=== PATIENT | male | born 2000 | race Hispanic/Latino ===

== ENCOUNTER 2022-01-08 16:21 | Emergency (ER) | payer OTHER, SELFPAY ==
--- OUTSIDE RECORDS SUMMARY | 2022-01-08 16:24 | XMS REPORT | Continuity of Care Document ---
:2000 Author Organization [facility] t Address [address] [place] [address] Care Team Providers Name Role Phone MIGNON Attending Clinician Unavailable Payers Payer Name Policy Type Policy Number Effective Date Expiration Date S ketty [facility] [id number] 2020 00:00:00 Problems This patient has no known problems. Allergies, Adverse Reactions, Alerts Allergy Allergy Status Severity Reaction(s) Onset Inactive Treating Comm ents Source Name Type Date Date Clinician NO KNOWN Drug Active [facility] ALLERGIE Class [facility] Medications This patient has no known medications. Procedures This patient has no known procedures. Encounters Start End Encounter Admission Attending Care Care Encounter Source Date/Time Date/Time Type Type Clinicians Facility Department ID 2020-11-30 2020-11-30 Emergency X CROW [facility] ERT [id number] [facility] 18:14:00 18:14:00 JUDY [facility] 2020-10-29 2020-10-29 Emergency X [facility] ERT [id number] [facility] 08:48:00 08:48:00 [facility] 2020-07-08 2020-07-08 Emergency X [facility] ERT [id number] [facility] 09:57:00 09:57:00 [facility] 2020-01-13 2020-01-13 Emergency X [facility] ERT [id number] [facility] 20:09:44 20:09:44 [facility] Results This patient has no known results.
[2022-01-08] MEDS ORDERED: NA CHLORIDE 0.9% 1,000 ML ONE (19:19)
[2022-01-08 19:33] LABS: Urine Blood Negative (Negative); Urine Glucose Negative (Negative); Urine Protein Negative (Negative)
[2022-01-08 19:54] LABS: Absolute Lymphocytes (CBC) 2.1 K/uL (0.7-4.9); Hematocrit 48.3 % (39.6-49.0); Lymphocytes % 24.4 % (15.3-44.8); MCV 83.5 fL (80-100); MPV 8.8 fL (7.6-11.3); RBC Red Blood Cell Count 5.78 M/uL (4.33-5.43)
[2022-01-08 20:05] LABS: Albumin 4.4 g/dL (3.4-5.0); Bilirubin Total 0.4 mg/dL (0.2-1.0); Potassium 3.6 mmol/L (3.5-5.1); Protein, Total 8.3 g/dL (6.4-8.2)
--- NOTE | 2022-01-08 20:26 | RAD REPORT ---
EXAM DESCRIPTION: CT - Abdomen Pelvis W Contrast - 01/08/2022 8:11 pm CLINICAL HISTORY: low back pain and suprapubic pain COMPARISON: CT ABD PELVIS W CONTRAST dated 01/08/2010 TECHNIQUE: Biphasic, helical CT imaging of the abdomen and pelvis was performed following 100 ml non -ionic IV contrast. No oral contrast administered. All CT scans are performed using dose optimization technique as appropriate and may include automated exposure control or mA/KV adjustment according to patient size. FINDINGS: No suspicious findings in the lung bases. The liver, spleen, and pancreas show no suspicious findings. Gallbladder and biliary tree are also wi thout suspicious finding. Renal function is symmetric with no pyelonephritis or acute renal parenchymal process. Fullness of ea ch renal pelvis is present, right greater than left, with no ureteral or bladder calculi seen. Enlarg ement of the renal pelves is new from 2010 CT study. No pyelonephritis or acute parenchymal process. Urinary bladder is mostly contracted. No adrenal abnormalities. No dilated bowel loops or bowel wall thickening. Appendix is normal. No active GI process seen. A few small mesenteric lymph nodes are present. No free air, free fluid or inflammatory stranding. No her tarun, mass or bulky lymphadenopathy. No suspicious bony findings. IMPRESSION: Contrast enhanced CT abdomen and pelvis showing no acute or emergent finding. Enlargement of each renal pelvis compared to 2010 is not associated with any obstructing calculus or delayed renal function. This is probably not clinically significant.
--- NOTE | 2022-01-08 21:03 | ER ---
Nurse's Notes [facility] Name: Yaya Boyd Age: 21 yrs Sex: Male : 2000 Arrival Date: 01/08/2022 Time: 16:29 Bed 20 Private MD: Diagnosis: Low back pain;Abdominal pain, unspecified Presentation: 01/08 16:38 Chief complaint: Low back pain that radiates to bilat flank and lower abdomen x 1 hb month. Also c/o intermittent burning with urination. Coronavirus screen: At this time, the client does not indicate any symptoms associated with coronavirus-19. Ebola Screen: No symptoms or risks identified at this time. Initial Sepsis Screen: Does the patient meet any 2 criteria? No. Patient's initial sepsis screen is negative. Does the patient have a suspected source of infection? No. Patient's initial sepsis screen is negative. Risk Assessment: Do you want to hurt yourself or someone else? Patient reports no desire to harm self or others. Onset of symptoms was December 2021. 16:38 Method Of Arrival: Ambulatory hb 16:38 Acuity: FATMATA 3 hb Triage Assessment: 16:40 General: Appears in no apparent distress. Behavior is calm, cooperative. Pain: Pain hb currently is 1 out of 10 on a pain scale. at worst was 10 out of 10 on a pain scale. Neuro: Level of Consciousness is awake, alert, obeys commands, Oriented to person, place, time, situation. Cardiovascular: Patient's skin is warm and dry. Respiratory: Respiratory effort is even, unlabored, Respiratory pattern is regular, symmetrical. Historical: - Allergies: 16:41 No Known Allergies; hb - Home Meds: 16:41 None [Active]; hb - PMHx: 16:41 None; hb - PSHx: 16:41 None; hb Screenin:44 Abuse screen: Denies threats or abuse. Nutritional screening: No deficits noted. ll3 Tuberculosis screening: No symptoms or risk factors identified. Fall Risk No fall in past 12 months (0 pts). No secondary diagnosis (0 pts). IV access (20 points). Ambulatory Aid- None/Bed Rest/Nurse Assist (0 pts). Gait- Normal/Bed Rest/Wheelchair (0 pts) Mental Status- Oriented to own ability (0 pts). Total Rubalcava Fall Scale indicates No Risk (0-24 pts). Assessment: 19:37 General: Appears comfortable, Behavior is calm, cooperative. Pain: Denies pain. Neuro: ll3 Level of Consciousness is awake, alert, obeys commands, Oriented to person, place, time, situation. GI: Bowel sounds present X 4 quads. Abd is soft and non tender X 4 quads. Patient currently denies abdominal pain. Derm: Skin is pink, warm \T\ dry. Musculoskeletal: Reports Intermittent back pain. 21:45 Reassessment: No changes from previously documented assessment. Patient and/or family ll3 updated on plan of care and expected duration. Pain level reassessed. Patient is alert, oriented x 3, equal unlabored respirations, skin warm/dry/pink. Vital Signs: 16:38 BP 144 / 92; Pulse 76; Resp 16; Temp 97.8; Pulse Ox 100% on R/A; Weight 92.99 kg; hb Height 5 ft. 7 in. (170.18 cm); Pain 1/10; 20:02 BP 127 / 89; Pulse 76; Resp 16; Pulse Ox 100% on R/A; ll3 21:45 BP 125 / 88; Pulse 72; Resp 16; Pulse Ox 100% ; ll3 16:38 Body Mass Index 32.11 (92.99 kg, 170.18 cm) hb ED Course: 16:29 Patient arrived in ED. am2 16:41 Triage completed. hb 18:19 Arm band placed on. hb 18:22 Diego Downs NP is PHCP. pm1 18:22 Christopher Hirsch MD is Attending Physician. pm1 19:37 Initial lab(s) drawn, by la, sent to lab. Urine collected: clean catch specimen, clear. ll3 Inserted saline lock: 22 gauge in right antecubital area, using aseptic technique. Blood collected. 20:02 Shahla Ann, STACEY is Primary Nurse. ll3 20:13 CT Abd/Pelvis - IV Contrast Only In Process Unspecified. EDMS 21:45 Patient has correct armband on for positive identification. Bed in low position. Call ll3 light in reach. Side rails up X 1. 21:45 No provider procedures requiring assistance completed. IV discontinued, intact, ll3 bleeding controlled, No redness/swelling at site. Pressure dressing applied. Administered Medications: 19:26 Drug: NS 0.9% 1000 ml Route: IV; Rate: 1000 ml; Site: right antecubital; ll3 21:46 Follow up: Response: No adverse reaction; IV Status: Completed infusion; IV Intake: ll3 1000ml Medication: 21:45 VIS not applicable for this client. ll3 Intake: 21:46 IV: 1000ml; Total: 1000ml. ll3 Outcome: 21:02 Discharge ordered by MD. pm1 21:46 Discharged to home ambulatory, with significant other. ll3 21:46 Condition: stable 21:46 Discharge instructions given to patient, significant other, Instructed on discharge instructions, follow up and referral plans. medication usage, Demonstrated understanding of instructions, follow-up care, medications, Prescriptions given X 3. 21:47 Patient left the ED. ll3 Signatures: Dispatcher [employer] EDMS Diego Downs, ISAAC REPRESENTATIVE pm1 Jennyfer Chen RN RN hb Moreno, Amanda am2 Shahla Ann RN RN 3
--- NOTE | 2022-01-08 21:03 | EDPHYS ---
Physician Documentation [facility] Name: Yaya Boyd Age: 21 yrs Sex: Male : 2000 Arrival Date: 01/08/2022 Time: 16:29 Bed 20 Private MD: ED Physician Christopher Hirsch HPI: 01/08 18:30 This 21 yrs old Male presents to ER via Ambulatory with complaints of Low Back pm1 Pain, Abdominal Pain - low. 18:30 The patient presents with pain that is acute. The symptoms are located in the low back. pm1 Location: Suprapubic area and groin. The problem was sustained from unknown cause. Onset: The symptoms/episode began/occurred 1 month(s) ago, Usually occurs at in the morning, but not everyday. Patient reports onset of pain this morning lasting about 30 minutes and resolved patient currently not in any kind of pain. Modifying factors: The patient symptoms are alleviated by nothing, the patient symptoms are aggravated by nothing. Associated signs and symptoms: Pertinent negatives: chest pain, dysuria, fever, nausea, vomiting. Severity of symptoms: in the emergency department the symptoms have resolved. The patient has experienced similar episodes in the past, several times, and the symptoms today are exactly the same, Has not been evaluated by healthcare provider 4 days presentation symptoms since onset. The patient has not recently seen a physician. Historical: - Allergies: 16:41 No Known Allergies; hb - Home Meds: 16:41 None [Active]; hb - PMHx: 16:41 None; hb - PSHx: 16:41 None; hb ROS: 18:30 Constitutional: Negative for fever, chills, and weight loss, Cardiovascular: Negative pm1 for chest pain, palpitations, and edema, Respiratory: Negative for shortness of breath, cough, wheezing, and pleuritic chest pain. 18:30 : Negative for injury, bleeding, discharge, and swelling, MS/Extremity: Negative for injury and deformity, Skin: Negative for injury, rash, and discoloration, Neuro: Negative for headache, weakness, numbness, tingling, and seizure. 18:30 Abdomen/GI: Positive for abdominal pain, of the suprapubic area. 18:30 Back: Positive for of the low back area. 18:30 All other systems are negative. Exam: 18:30 Constitutional: This is a well developed, well nourished patient who is awake, alert, pm1 and in no acute distress. Head/Face: Normocephalic, atraumatic. 18:30 Back: No spinal tenderness. No costovertebral tenderness. Full range of motion. Skin: Warm, dry with normal turgor. Normal color with no rashes, no lesions, and no evidence of cellulitis. MS/ Extremity: Pulses equal, no cyanosis. Neurovascular intact. Full, normal range of motion. 18:30 Eyes: Exam is negative for acute changes, Periorbital structures: no acute changes, Conjunctiva: no acute changes, no injection. 18:30 ENT: Exam is negative for acute changes, Mouth: Lips: normal, moist, Oral mucosa: normal, pink and intact, moist. 18:30 Cardiovascular: Exam negative for acute changes, Rate: normal, Rhythm: regular, Pulses: no pulse deficits are appreciated, Heart sounds: normal, normal S1and S2. 18:30 Respiratory: Exam negative for acute changes, respiratory distress, shortness of breath, Breath sounds: are clear throughout. 18:30 Abdomen/GI: Inspection: abdomen appears normal, Palpation: abdomen is soft and non-tender, in all quadrants. 18:30 Neuro: Exam negative for acute changes, Orientation: is normal, Mentation: is normal, Motor: is normal, moves all fours. Vital Signs: 16:38 BP 144 / 92; Pulse 76; Resp 16; Temp 97.8; Pulse Ox 100% on R/A; Weight 92.99 kg; hb Height 5 ft. 7 in. (170.18 cm); Pain 1/10; 20:02 BP 127 / 89; Pulse 76; Resp 16; Pulse Ox 100% on R/A; ll3 21:45 BP 125 / 88; Pulse 72; Resp 16; Pulse Ox 100% ; ll3 16:38 Body Mass Index 32.11 (92.99 kg, 170.18 cm) hb MDM: 18:22 Patient medically screened. [facility] 21:02 Data reviewed: vital signs. Data interpreted: Pulse oximetry: on room air is 100 %. pm1 Interpretation: normal. Counseling: I had a detailed discussion with the patient and/or guardian regarding: the historical points, exam findings, and any diagnostic results supporting the discharge/admit diagnosis, lab results, radiology results, the need for outpatient follow up, a family practitioner, to return to the emergency department if symptoms worsen or persist or if there are any questions or concerns that arise at home. 01/08 18:30 Order name: CBC with Diff; Complete Time: 20:13 pm1 01/08 18:30 Order name: CMP; Complete Time: 20:13 pm1 01/08 18:30 Order name: Lipase; Complete Time: 20:13 pm1 01/08 18:30 Order name: CT Abd/Pelvis - IV Contrast Only; Complete Time: 20:46 pm1 01/08 19:33 Order name: Urine Dipstick-Ancillary; Complete Time: 19:40 EDMS 01/08 18:30 Order name: IV Saline Lock; Complete Time: 19:26 pm1 01/08 18:30 Order name: Labs collected and sent; Complete Time: 19:26 pm1 01/08 18:30 Order name: Urine Dipstick-Ancillary (obtain specimen); Complete Time: 19:37 pm1 Administered Medications: : Drug: NS 0.9% 1000 ml Route: IV; Rate: 1000 ml; Site: right antecubital; ll3 21:46 Follow up: Response: No adverse reaction; IV Status: Completed infusion; IV Intake: ll3 1000ml Disposition Summary: 01/08/22 21:02 Discharge Ordered Location: Home pm1 Problem: new pm1 Symptoms: have improved pm1 Condition: Stable pm1 Diagnosis - Low back pain pm1 - Abdominal pain, unspecified pm1 Followup: pm1 - With: Emergency Department - When: As needed - Reason: Worsening of condition Followup: pm1 - With: Private Physician - When: 2 - 3 days - Reason: Recheck today's complaints, Continuance of care, Re-evaluation by your physician Discharge Instructions: - Discharge Summary Sheet pm1 - Abdominal Pain, Adult pm1 - Acute Back Pain, Adult pm1 Forms: - Medication Reconciliation Form pm1 - Thank You Letter pm1 - Antibiotic Education pm1 - Prescription Opioid Use pm1 Prescriptions: - Cyclobenzaprine 10 mg Oral Tablet - take 1 tablet by ORAL route every 8 hours As needed; 30 tablet; Refills: 0, pm1 Product Selection Permitted - Diclofenac Sodium 75 mg Oral tablet,delayed release (DR/EC) - take 1 tablet by ORAL route 2 times per day As needed; 30 tablet; Refills: 0, pm1 Product Selection Permitted Signatures: Dispatcher [employer] Christopher Resendez MD MD cha Marinas, Patrick, VP [employer] pm1 Jennyfer Chen, RN RN Shahla Ann RN RN ll3
[2022-01-08 21:53] VITALS: TEMP 97.8; O2SAT 100
[2022-01-08 21:58] VITALS: BP 125/88
== END 2022-01-08 21:47 | disposition home or self-care (01) ==
LOC: ER 16:21
DX: M54.50 Low back pain, unspecified (principal); R10.30 Lower abdominal pain, unspecified
CPT/HCPCS: 36415; 74177; 80053; 81003; 83690; 85025; 96360; 96361; 99284; J7030; Q9967